=== PATIENT | female | born 1975 | race African-American/Black ===

== ENCOUNTER 2019-11-09 08:26 | Outpatient (CLI) | payer OTHER ==
[2019-11-09] MEDS ORDERED: OMNIPAQUE 300 MG/ML, 10ML VIAL ONE (09:00)
[2019-11-09] MEDS ORDERED: LIDOCAINE-MPF 1%, 5ML ONE (09:32)
[2019-11-09] MEDS ORDERED: GADOTERATE 2.5 MMOL/5 ML VIAL ONE (13:19)
== END 2019-11-09 23:59 | disposition home or self-care (01) ==
LOC: RAD 08:26
PROVIDERS: ATTEND Orthopaedic Surgery Adult Reconstructive Orthopaedic Surgery
DX: M25.512 Pain in left shoulder (principal); Z86.718 Personal history of other venous thrombosis and embolism; Z82.61 Family history of arthritis
CPT/HCPCS: 23350; 73040; 73222; 73721; A9575; Q9967